=== PATIENT | female | born 1940 | race Caucasian/White ===

== ENCOUNTER 2022-07-03 12:17 | Day surgery (SDC) | payer MEDICARE, MEDICAID ==
[~2022-07-03] VITALS: Ht 149.9 cm; Wt 57.7 kg
[2022-07-03] VITALS (7 sets, daily range): BP systolic 114–139; BP diastolic 52–80
[2022-07-03] MEDS ORDERED: fentaNYL/PF 50MCG/1 ML 2ML syringe ONE (12:40)
[2022-07-03] MEDS ORDERED: normal saline 1,000 ML IV SCH (12:40)
[2022-07-03] MEDS ORDERED: LORazepam 0.5 MG tablet PO PRN (12:40)
[2022-07-03] MEDS ORDERED: midazolam 1 mg/ML 2ml injection ONE (12:40)
[2022-07-03] MEDS ORDERED: diphenhydrAMINE 25mg capsule PO PRN (12:40)
[2022-07-03] MEDS ORDERED: iohexol 350MG/ML 100ml bottle IV ONE ×2 (12:40→14:29)
[2022-07-03] MEDS ORDERED: LEVO125T8 PO (12:50)
[2022-07-03] MEDS ORDERED: ERGO400C PO (12:51)
[2022-07-03] MEDS ORDERED: ABEM100T PO (12:51)
[2022-07-03] MEDS ORDERED: APIX2.5T PO (12:51)
[2022-07-03] MEDS ORDERED: [UNRECOGNIZED DRUG - CODE] IM (12:51)
[2022-07-03] MEDS ORDERED: FURO40TA4 PO (12:51)
[2022-07-03 13:08] LABS: BASOPHILS # (AUTO) 0.1 X10'3 (0-0.2); BASOPHILS % (AUTO) 1.9 % (0-1); EOSINOPHILS # (AUTO) 0.1 X10'3 (0-0.9); HEMOGLOBIN 10.8 g/dl (12.0-16.0); MEAN CORPUSCULAR VOLUME 110.8 FL (78-98); MONOCYTES # (AUTO) 0.4 X10'3 (0-0.9); RED CELL DISTRIBUTION WIDTH 12.8 % (11.5-14.5); WHITE BLOOD COUNT 4.4 X10'3 (4.5-11.0)
[2022-07-03 13:15] LABS: EOSINOPHILS % (AUTO) 2.1 % (0-6); HEMATOCRIT 31.4 % (35.0-45.0); LYMPHOCYTES # (AUTO) 1.3 X10'3 (1.1-4.8); LYMPHOCYTES % (AUTO) 30.4 % (21-51); MEAN CORPUSCULAR HGB CONC 34.3 g/dL (33.0-36.5); MEAN PLATELET VOLUME 7.9 FL (7.4-10.4); MONOCYTES % (AUTO) 9.9 % (2-12); NEUTROPHILS # (AUTO) 2.5 X10'3 (1.8-7.7); NEUTROPHILS % (AUTO) 55.7 % (42-75); PLATELET COUNT 213 X10'3 (140-440); RED BLOOD COUNT 2.83 X10'6 (4.20-5.60)
[2022-07-03] MEDS ORDERED: verapamil 2.5 mg/ml inj IV ONE (13:22)
[2022-07-03] MEDS ORDERED: LIDOcaine 1% (10mg/ml) 2ml vial ONE (13:22)
[2022-07-03] MEDS ORDERED: nitroGLYCERIN-Tridil 50MG/D5W 250 ML IV ONE (13:23)
[2022-07-03] MEDS ORDERED: heparin 1,000unit/ml 10ml vial 10 ML ONE (13:23)
[2022-07-03 13:24] LABS: APTT 25 SECONDS (22-32)
[2022-07-03 13:31] LABS: ALBUMIN 3.5 G/DL (3.4-5.0); ANION GAP 12 (8-16); BLOOD UREA NITROGEN 25 MG/DL (7-18); BUN/CREATININE RATIO 13.8 (6.6-38.0); CHLORIDE 101 MMOL/L (99-107); CREATININE 1.81 MG/DL (0.40-0.90); GLUCOSE 112 MG/DL (70-104); POTASSIUM 3.4 MMOL/L (3.5-5.1); SODIUM 141 MMOL/L (135-145); TOTAL CARBON DIOXIDE 28.2 MMOL/L (24-32); eGFR 27 ML/MIN
[2022-07-03 14:27] LABS: PLATELET ESTIMATE NORMAL
[2022-07-03 14:57] LABS: ISTAT HGB ART 8.5 g/dl (12.0-16.0); ISTAT Hct ART 25 %PCV (35-45); ISTAT O2 SATURATION ARTERIAL 95 % (95-98); ISTAT SOURCE ART
[2022-07-03] MEDS ORDERED: normal saline 1000ml 1,000 ML IV SCH (15:15)
[2022-07-03] MEDS ORDERED: ondansetron/PF 4mg/2ml inj IV PRN (15:15)
[2022-07-03] MEDS ORDERED: proCHLORperazine 10 MG/2 ml inj IV PRN (15:15)
[2022-07-03 16:06] LABS: ISTAT Hct MIX 28 %PCV (35-45); ISTAT O2 SATURATION MIX VENOUS 59 % (60-80); ISTAT SOURCE VEN
== END 2022-07-03 17:15 | disposition home or self-care (01) ==
LOC: SSTAY O 12:17
PROVIDERS: ATTEND Student in an Organized Health Care Education/Training Program
DX: I34.0 Nonrheumatic mitral (valve) insufficiency (principal); I25.10 Atherosclerotic heart disease of native coronary artery without angina pectoris; I11.0 Hypertensive heart disease with heart failure; J44.9 Chronic obstructive pulmonary disease, unspecified; I50.32 Chronic diastolic (congestive) heart failure; I27.20 Pulmonary hypertension, unspecified; E03.9 Hypothyroidism, unspecified; M85.80 Other specified disorders of bone density and structure, unspecified site; I45.10 Unspecified right bundle-branch block; I44.4 Left anterior fascicular block; Z87.891 Personal history of nicotine dependence; Z85.3 Personal history of malignant neoplasm of breast; Z85.118 Personal history of other malignant neoplasm of bronchus and lung; Z87.39 Personal history of other diseases of the musculoskeletal system and connective tissue; Z88.6 Allergy status to analgesic agent; Z79.01 Long term (current) use of anticoagulants; Z79.890 Hormone replacement therapy; Z79.899 Other long term (current) drug therapy; Z90.710 Acquired absence of both cervix and uterus; Z90.12 Acquired absence of left breast and nipple
CPT/HCPCS: 36415; 80048; 82803; 85014; 85025; 85610; 85730; 93005; 93460; 99152; C1769; C1894; J1644; J2250; J3010; J3490; J7030; Q9967; 85008; 99153; A6258; A6402; C1751